=== PATIENT | male | born 1995 | race Caucasian/White ===

== ENCOUNTER 2018-04-09 16:04 | Emergency (ER) | payer OTHER ==
[~2018-04-09] VITALS: Ht 190.5 cm; Wt 95.3 kg
== END 2018-04-09 16:30 | disposition home or self-care (01) ==
LOC: ER 16:09
DX: S51.851A Open bite of right forearm, initial encounter (principal); S50.11XA Contusion of right forearm, initial encounter; W50.3XXA Accidental bite by another person, initial encounter; Y93.89 Activity, other specified; Y92.89 Other specified places as the place of occurrence of the external cause; Y99.8 Other external cause status
CPT/HCPCS: 99281; A4663